=== PATIENT | male | born 1990 | race Caucasian/White ===

== ENCOUNTER 2016-07-17 17:16 | Emergency (ER) | payer BC ==
[2016-07-17] MEDS ORDERED: Prochlorperazine TAB* 10 MG PO ONE ×2 (18:36→18:45)
[2016-07-17] MEDS ORDERED: Ketorolac INJ* 30 MG/ML 1 ML VIAL IM ONE (18:36)
--- NOTE | 2016-07-17 18:38 | UC ---
Headache HPI - HPI Summary HPI Summary: Patient has history of migraines when he was younger, gets headaches every now and then but now he has had one for the past 5 days and it wont go away, located over the left eye, when it gets bad its the whole front of his head and he gets lightheaded. denies any vision changes fever. - History Of Current Complaint Stated Complaint: HEADACHES Time Seen by Provider: 07/17/16 18:24 Hx Obtained From: Patient Onset/Duration: Sudden Onset, Lasting Days Onset Of Symptoms: Gradual Initially Headache Was: Moderate Currently Pain Is: Moderate Timing: Constant, Days Character: Throbbing, Migraine Location of Headache: Frontal Aggravating Factor: Nothing Allevating Factors: Nothing Associated Signs And Symptoms: Positive: Other (Noted In Comments) - lightheaded - Allergies/Home Medications Allergies/Adverse Reactions: Allergies Allergy/AdvReac Type Severity Reaction Status Date / Time No Known Allergies Allergy Verified 07/17/16 18:31 Home Medications: Home Medications Ibuprofen TAB* [Advil TAB*] 400 mg PO Q6H PRN 07/17/16 [History Confirmed ] PMH/Surg Hx/FS Hx/Imm Hx Previously Healthy: Yes Endocrine History Of: Denies: Diabetes, Thyroid Disease Cardiovascular History Of: Denies: Cardiac Disorders, Hypertension Respiratory History Of: Reports: Asthma Denies: COPD GI/ History Of: Denies: Ulcer - Surgical History Surgical History: Yes Surgery Procedure, Year, and Place: Rhinoplasty. Left wrist tumor excision - Family History Known Family History: Positive: Hypertension - Social History Alcohol Use: Occasionally Alcohol Amount: states that he was drinking 5 nights a week until a month ago Substance Use Type: None Smoking Status (MU): Former Smoker Amount Used/How Often: ~ 1 ppd x3 years ~ When Did the Patient Quit Smoking/Using Tobacco: quit ~ 2014 Review of Systems Constitutional: Negative Skin: Negative Eyes: Negative ENT: Negative Respiratory: Negative Cardiovascular: Negative Gastrointestinal: Negative Genitourinary: Negative Motor: Negative Neurovascular: Negative Musculoskeletal: Negative Neurological: Headache Psychological: Negative All Other Systems Reviewed And Are Negative: Yes Physical Exam Triage Information Reviewed: Yes Appearance: Well-Appearing, Well-Nourished, Pain Distress Vital Signs Reviewed: Yes Eye Exam: Normal Eyes: Positive: Conjunctiva Clear ENT Exam: Normal ENT: Positive: Hearing grossly normal, Pharynx normal, TMs normal Dental Exam: Normal Neck exam: Normal Neck: Positive: Supple, Nontender, No Lymphadenopathy Respiratory Exam: Normal Respiratory: Positive: Chest non-tender, Lungs clear, Normal breath sounds Cardiovascular Exam: Normal Cardiovascular: Positive: RRR, No Murmur, Pulses Normal Abdominal Exam: Normal Abdomen Description: Positive: Nontender, No Organomegaly, Soft Bowel Sounds: Positive: Present Musculoskeletal Exam: Normal Musculoskeletal: Positive: Strength Intact, ROM Intact, No Edema Neurological Exam: Normal Neurological: Positive: Alert, Muscle Tone Normal, Other: - neg rhombergs, cranial nerves intact, gait is unaffected, all extremities move equal bilaterally Psychological Exam: Normal Skin Exam: Normal Headache Course/Dx - Course Course Of Treatment: hx obtained, exam performed, meds reviewed, UA obtained to assess possible dehydration as patient feels he is not drinking enough, toradol given IM with compazine. - Differential Dx/Diagnosis Differential Diagnosis/HQI/PQRI: Subdural Hematoma, Migraine, Sinus Headache, Tension Headache Provider Diagnoses: migraine Discharge - Discharge Plan Condition: Stable Disposition: AGAINST MEDICAL ADVICE Patient Education Materials: Migraine Headache (ED) Referrals: James Acuna MD [Primary Care Provider] - Additional Instructions: you were given a shot of toradol and a compazine pill to help with your headache. GO home and get rest, Increase fluid intake and start monitoring onset of headaches to determine any causal triggers. Follow up with your primary MD if headaches persist.
[2016-07-17 18:39] VITALS: BP 123/68
[2016-07-17] MEDS ORDERED: Prochlorperazine TAB* 5 MG ONE (19:02)
[2016-07-17] MEDS: Prochlorperazine TAB* 5 MG PO ONE ×2 (19:06)
== END 2016-07-17 19:19 | disposition left against medical advice (07) ==
LOC: UCCORT 17:16
DX: G43.909 Migraine, unspecified, not intractable, without status migrainosus (principal); Z87.891 Personal history of nicotine dependence
CPT/HCPCS: 81003; 96372; 99212; A9270-GY; G0463; J1885; Q0164

== ENCOUNTER 2018-07-31 15:56 | Emergency (ER) | payer BC ==
[2018-07-31 17:02] VITALS: BP 121/62
--- NOTE | 2018-07-31 18:10 | UC ---
Back Pain HPI - HPI Summary HPI Summary: Onset of back pain and spasm this morning after he worked in a forward bending position for about an hour, attaching a leaf rake to the back of his vehicle. Had marked pain coming to an upright position. Has no leg weakness or paresthesias. No analgesics used. No incontinence of bowel or bladder. - History of Current Complaint Chief Complaint: UCBackPain Stated Complaint: BACK COMPLAINT Time Seen by Provider: 07/31/18 18:00 Hx Obtained From: Patient Onset/Duration: Sudden Onset, Lasting Hours Timing: Constant Severity Initially: Severe Severity Currently: Severe Pain Intensity: 9 Back Pain: Is Diffuse - across lumbar spine, mostly to the left Character: Throbbing, Spasmodic, Stiffness Aggravating Factor(s): Movement, Lifting, Bending, Walking, Cough Alleviating Factor(s): Rest - Has taken no analgesics Associated Signs And Symptoms: Positive: Negative - Risk Factors AAA Risk Factors: Negative TAD Risk Factors: Negative Cauda Equina Risk Factors: Negative Epidural Abscess Risk Factors: Negative - Allergies/Home Medications Allergies/Adverse Reactions: Allergies Allergy/AdvReac Type Severity Reaction Status Date / Time No Known Allergies Allergy Verified 07/31/18 17:02 Home Medications: Home Medications Calcium Carbonate [Calcium] 500 mg PO DAILY 07/31/18 [History Confirmed 07/31/18 ] Glucosamine Sulfate Dipot Chlr [Glucosamine] 1,000 mg PO DAILY 07/31/18 [ History Confirmed 07/31/18] PMH/Surg Hx/FS Hx/Imm Hx Previously Healthy: Yes - Surgical History Surgical History: Yes Surgery Procedure, Year, and Place: Rhinoplasty. Left wrist tumor excision - Family History Known Family History: Positive: Hypertension - Social History Occupation: Employed Full-time Lives: With Family Alcohol Use: Occasionally Alcohol Amount: states that he was drinking 5 nights a week until a month ago Substance Use Type: None Smoking Status (MU): Former Smoker Amount Used/How Often: ~ 1 ppd x3 years ~ When Did the Patient Quit Smoking/Using Tobacco: quit ~ 2014 Review of Systems All Other Systems Reviewed And Are Negative: Yes Constitutional: Positive: Negative Skin: Positive: Negative Eyes: Positive: Negative ENT: Positive: Negative Respiratory: Positive: Negative Cardiovascular: Positive: Negative Gastrointestinal: Positive: Negative Genitourinary: Positive: Negative Motor: Positive: Decreased ROM Neurovascular: Positive: Negative Musculoskeletal: Positive: Myalgia Is Patient Immunocompromised?: No Physical Exam Triage Information Reviewed: Yes Appearance: Well-Appearing, Pain Distress - moderate, Thin Vital Signs: Initial Vital Signs Temp 98.8 F 07/31/18 16:59 Pulse 66 07/31/18 16:59 Resp 16 07/31/18 16:59 BP 121/62 07/31/18 16:59 Pulse Ox 98 07/31/18 16:59 Eye Exam: Normal ENT: Positive: Normal ENT inspection Respiratory: Positive: Lungs clear, Normal breath sounds Cardiovascular: Positive: RRR, No Murmur Abdomen Description: Positive: Nontender, Soft Musculoskeletal Exam: Other - Antalgic gait, can push to toes and heels. SLR to 90 degrees on the right, about 85 on the left, limited by hamstrings. Musculoskeletal: Positive: Strength Intact, No Edema, ROM Limited @ - lumbar spine with forward flexion to 30 degrres, cannot come to full extension. Neurological Exam: Other - DTR's symmetrical and 3+ Neurological: Positive: Alert, Muscle Tone Normal Back Pain Course/Dx - Course Course Of Treatment: He would like to return to work. Ibuprofen given, and will try heat and muscle relaxants once home. - Differential Dx/Diagnosis Differential Diagnosis/HQI/PQRI: Herniated Disc, Strain, Sprain Provider Diagnosis: Back muscle spasm Discharge - Sign-Out/Discharge Documenting (check all that apply): Patient Departure All imaging exams completed and their final reports reviewed: No Studies - Discharge Plan Condition: Stable Disposition: HOME Prescriptions: Cyclobenzaprine TAB* [Flexeril 10 MG TAB*] 10 mg PO TID PRN #20 tab PRN Reason: Spasms - Back Patient Education Materials: Muscle Spasm (ED) Referrals: Juan C Yeung MD [Primary Care Provider] - Additional Instructions: You have severe spasm in the low back. Use ibuprofen 800mg (4 x 200mg over the counter tablets) every 6 to 8 hours for the next several days to provide base pain relief. Use flexeril as needed for back spasm, knowing that it is sedating and will relax all of your muscles. It might be most helpful at night. Ensure that you stretch out the low back muscles by hugging your knees to your chest while lying on your back, or doing cat/cow stretches. Follow up with your primary physician for evaluation of pain is not improving. - Billing Disposition and Condition Condition: STABLE Disposition: Home
[2018-07-31] MEDS ORDERED: Ibuprofen TAB* 400 MG PO ONE (18:21)
== END 2018-07-31 18:42 | disposition home or self-care (01) ==
LOC: UCCORT 15:56
DX: M62.830 Muscle spasm of back (principal); M54.5 Low back pain; Z87.891 Personal history of nicotine dependence
CPT/HCPCS: 99212; A9270-GY; G0463